=== PATIENT | male | born 1955 | race Caucasian/White ===

== ENCOUNTER → 2022-11-06 | Outpatient (CLI) | payer MEDICARE ==
[~2022-11-06] MED LIST: ASPI81CH PO; DIPH50 PO; FAMO20 PO; LAMO50; LISI5; OXYACE5T PO; PRED20 PO; PROM25 PO; SIMV40 PO; TESTOSTERONE; VENL75
== END ==
LOC: LAB SHORT 08:31 → PLD 08:31 → LAB SHORT 11-07 08:04
DX: D36.14 Benign neoplasm of peripheral nerves and autonomic nervous system of thorax (principal)
CPT/HCPCS: 88305

== ENCOUNTER 2023-05-14 10:52 | Day surgery (SDC) | payer MEDICARE ==
[2023-05-14] MEDS ORDERED: Lidocaine HCl 4% Cream 5 GM ONE (13:37)
== END 2023-05-14 23:14 | disposition home or self-care (01) ==
LOC: WOUND 10:52
DX: T81.31XD Disruption of external operation (surgical) wound, not elsewhere classified, subsequent encounter (principal); Y83.8 Other surgical procedures as the cause of abnormal reaction of the patient, or of later complication, without mention of misadventure at the time of the procedure
CPT/HCPCS: A6213; A9270; G0463

== ENCOUNTER 2023-05-21 01:56 | Day surgery (SDC) | payer MEDICARE | END 2023-05-21 23:06 | disposition home or self-care (01) | LOC: WOUND 01:56 | DX: T81.31XD Disruption of external operation (surgical) wound, not elsewhere classified, subsequent encounter (principal); Y83.8 Other surgical procedures as the cause of abnormal reaction of the patient, or of later complication, without mention of misadventure at the time of the procedure | CPT/HCPCS: A6213; G0463 ==

== ENCOUNTER 2023-07-02 02:29 | Day surgery (SDC) | payer MEDICARE | END 2023-07-02 23:37 | disposition home or self-care (01) | LOC: WOUND 02:29 | DX: T81.31XD Disruption of external operation (surgical) wound, not elsewhere classified, subsequent encounter (principal) | CPT/HCPCS: A6213; G0463 ==

== ENCOUNTER 2023-07-16 03:16 | Day surgery (SDC) | payer MEDICARE | END 2023-07-16 23:04 | disposition home or self-care (01) | LOC: WOUND 03:16 | DX: T81.31XD Disruption of external operation (surgical) wound, not elsewhere classified, subsequent encounter (principal); Y83.8 Other surgical procedures as the cause of abnormal reaction of the patient, or of later complication, without mention of misadventure at the time of the procedure | CPT/HCPCS: A6213; G0463 ==

== ENCOUNTER → 2023-07-23 | Outpatient (CLI) | payer MEDICARE | LOC: LAB 09:33 → LAB SHORT 09:33 | DX: C44.519 Basal cell carcinoma of skin of other part of trunk (principal); C44.712 Basal cell carcinoma of skin of right lower limb, including hip | CPT/HCPCS: 88305 ==

== ENCOUNTER 2023-07-30 04:35 | Day surgery (SDC) | payer MEDICARE, OTHER | END 2023-07-30 23:22 | disposition home or self-care (01) | LOC: WOUND 04:35 | DX: T81.31XD Disruption of external operation (surgical) wound, not elsewhere classified, subsequent encounter (principal); Y83.8 Other surgical procedures as the cause of abnormal reaction of the patient, or of later complication, without mention of misadventure at the time of the procedure | CPT/HCPCS: A6213; G0463 ==

== ENCOUNTER 2024-05-12 09:24 | Day surgery (SDC) | payer MEDICARE ==
[~2024-05-12] VITALS: Ht 188 cm; Wt 117.0 kg
[~2024-05-12 09:24] MED LIST changes: +ATOR10 PO; +Aspir 8181 MG PO; +Balanced Salt Epinephrine Irrigation Solution 500 mL IR SCH; +DULOXETINE HCL60 M1 PO; +Diazepam 5 MG Tab PO PRN; +Diazepam 5 MG Tab PO SCH; +LAMICTAL200 MG PO; +LISI20 PO; +Lidocaine HCl/Pf 1% 5 ML VIAL XX SCH; +MULTIVITAMIN; +Moxifloxacin HCL 0.5 MG/0.1 ML 0.4MLSYR LEFTEYE SCH; +Ondansetron 4 MG SoluTab MM PRN; +PHENYLEPHRINE\\TROPICAMIDE\\TETRACAINE OPHTHALMIC DILATING SOLN LEFTEYE PRN; +Povidone-Iodine 450 DROP/30 ML Solution LEFTEYE SCH; +Povidone-Iodine 450 DROP/30 ML Solution ONE; +Tetracaine HCl/Pf 0.5% Opth Soln 4 ml ONE; +Triamcinolone Inj Susp 40 MG / ML 1ML Vial INJ SCH; +Triamcinolone Inj Susp 40 MG / ML 1ML Vial ONE; +Vitamin D1000 UNI1 PO
[2024-05-12] MEDS ORDERED: Diazepam 10 MG Tab ONE (09:45)
--- NOTE | 2024-05-12 10:18 | NUR ---
05/12/24 1018 Alla Dick PT REPORTED ANXIETY AT 3/10 IMMEDIATELY PRIOR TO ADMINISTRATION OF 10MG VALIUM PO X1.
[2024-05-12 11:44] VITALS: BP 129/85
== END 2024-05-12 11:39 | disposition home or self-care (01) ==
LOC: ORSCSDS 09:24
PROVIDERS: Ophthalmology
PROC: 08RK3JZ Replacement of Left Lens with Synthetic Substitute, Percutaneous Approach (ICD-10-PCS; principal; 2024-05-12 11:00)
DX: H25.812 Combined forms of age-related cataract, left eye (principal); Z96.1 Presence of intraocular lens; H52.202 Unspecified astigmatism, left eye; I10 Essential (primary) hypertension; E78.5 Hyperlipidemia, unspecified; I50.9 Heart failure, unspecified; Z79.82 Long term (current) use of aspirin; Z79.899 Other long term (current) drug therapy
CPT/HCPCS: A9270; J3301; V2632